=== PATIENT | male | born 1990 | race Caucasian/White ===

== ENCOUNTER 2016-11-20 16:12 | Emergency (ER) | payer BC ==
--- NOTE | 2016-11-20 16:39 | EDM.PDOC ---
ED HPI GENERAL MEDICAL PROBLEM - General Chief Complaint: Chest Pain Stated Complaint: CHEST PAINS Time Seen by Provider: 11/20/16 16:30 - History of Present Illness INITIAL COMMENTS - FREE TEXT/NARRATIVE: HISTORY AND PHYSICAL: History of present illness: Patient is a 25-year-old white male who presents with chief complaint of chest pain this is atypical in the center of his chest with no clear associated shortness of breath palpitations diaphoresis nausea vomiting or other complaints he does have a history of esophagitis and does take Prilosec there is no clear palliating or grating factors and Review of systems: As per history of present illness and below otherwise all systems reviewed and negative. Past medical history: As per history of present illness and as reviewed below otherwise noncontributory. Surgical history: As per history of present illness and as reviewed below otherwise noncontributory. Social history: No reported history of drug or alcohol abuse. Family history: As per history of present illness and as reviewed below otherwise noncontributory. Physical exam: HEENT: Atraumatic, normocephalic, pupils reactive, negative for conjunctival pallor or scleral icterus, mucous membranes moist, throat clear, neck supple, nontender, trachea midline. Lungs: Clear to auscultation, breath sounds equal bilaterally, chest nontender. Heart: S1S2, regular, negative for clicks, rubs, or JVD. Abdomen: Soft, nondistended, nontender. Negative for masses or hepatosplenomegaly. Negative for costovertebral tenderness. Pelvis: Stable nontender. Genitourinary: Deferred. Rectal: Deferred. Extremities: Atraumatic, negative for cords or calf pain. Neurovascular unremarkable. Neuro: Awake, alert, oriented. Cranial nerves II through XII unremarkable. Cerebellum unremarkable. Motor and sensory unremarkable throughout. Exam nonfocal. Diagnostics: EKG chest x-ray Therapeutics: None Impression: #1 atypical chest pain #2 history of gastroesophageal reflux disease Definitive disposition and diagnosis as appropriate pending reevaluation and review of above. ED ROS GENERAL - Review of Systems Review Of Systems: ROS reveals no pertinent complaints other than HPI. ED EXAM, GENERAL - Physical Exam Exam: See Below (See dictation) Course - Orders/Labs/Meds Orders: Active Orders 24 hr Category Date Time Status Chest 2V [CR] Stat Exams 11/20/16 16:33 Ordered Departure - Departure Time of Disposition: 16:37 Disposition: Home, Self-Care 01 Condition: good Clinical Impression: Atypical chest pain Forms: ED Department Discharge Additional Instructions: The following information is given to patients seen in the emergency department who are being discharged to home. This information is to outline your options for follow-up care. We provide all patients seen in our emergency department with a follow-up referral. The need for follow-up, as well as the timing and circumstances, are variable depending upon the specifics of your emergency department visit. If you don't have a primary care physician on staff, we will provide you with a referral. We always advise you to contact your personal physician following an emergency department visit to inform them of the circumstance of the visit and for follow-up with them and/or the need for any referrals to a consulting specialist. The emergency department will also refer you to a specialist when appropriate. This referral assures that you have the opportunity for followup care with a specialist. All of these measure are taken in an effort to provide you with optimal care, which includes your followup. Under all circumstances we always encourage you to contact your private physician who remains a resource for coordinating your care. When calling for followup care, please make the office aware that this follow-up is from your recent emergency room visit. If for any reason you are refused follow-up, please contact the [facility] emergency department at and asked to speak to the emergency department charge nurse. [facility] [address] [place] [id number] Followup primary medical doctor/clinic above is discussed Motrin Tylenol as directed continue Prilosec return as needed as discussed - My Orders Last 24 Hours: My Active Orders 11/20/16 16:33 Chest 2V [CR] Stat - Assessment/Plan Last 24 Hours: My Active Orders 11/20/16 16:33 Chest 2V [CR] Stat
[2016-11-20 17:35] VITALS: BP 132/70
--- NOTE | 2016-11-21 19:06 | CR ---
EXAM DATE: 11/20/16 PATIENT'S AGE: 25 Patient: JENNIFFER KEY Facility: [place], [place] Site . Site : 1990 Study: XRay Chest [id number]/26/2017 5:16:56 PM Ordering Physician: Levar Tripathi Final Report: INDICATION: Pain/shortness of breath. Cough. Technique: PA and lateral chest x-ray. Findings: Heart size normal. Lungs clear without infiltrate or consolidation. Chest otherwise negative without acute disease. Dictated by Curtis Moser MD @ Nov 20 2016 5:52PM (Electronic Signature) Report Signed by Proxy and Original Signed Document filed in the Medical Record. MTDD
== END 2016-11-20 17:33 | disposition home or self-care (01) ==
LOC: MW.ED 16:12
DX: R07.89 Other chest pain (principal)
CPT/HCPCS: 71020; 71020-26; 93005; 99283; 99285-25

== ENCOUNTER 2017-02-21 18:06 | Emergency (ER) | payer BC ==
--- NOTE | 2017-02-21 18:30 | EDM.PDOC ---
ED HPI GENERAL MEDICAL PROBLEM - General Chief Complaint: Laceration Stated Complaint: PT HAS KNIFE IN RT FOOT Time Seen by Provider: 02/21/17 18:26 - History of Present Illness INITIAL COMMENTS - FREE TEXT/NARRATIVE: HISTORY AND PHYSICAL: History of present illness: Patient 26-year-old male presents with a concern of acute injury right foot in the form of penetrating trauma he stepped on a knifeblade that went through his sandal into the plantar surface and protrudes out the dorsal aspect of this distal forefoot he denies any other trauma or concern tetanus status to be determined Review of systems: As per history of present illness and below otherwise all systems reviewed and negative. Past medical history: As per history of present illness and as reviewed below otherwise noncontributory. Surgical history: As per history of present illness and as reviewed below otherwise noncontributory. Social history: No reported history of drug or alcohol abuse. Family history: As per history of present illness and as reviewed below otherwise noncontributory. Physical exam: HEENT: Atraumatic, normocephalic, pupils reactive, negative for conjunctival pallor or scleral icterus, mucous membranes moist, throat clear, neck supple, nontender, trachea midline. Lungs: Clear to auscultation, breath sounds equal bilaterally, chest nontender. Heart: S1S2, regular, negative for clicks, rubs, or JVD. Abdomen: Soft, nondistended, nontender. Negative for masses or hepatosplenomegaly. Negative for costovertebral tenderness. Pelvis: Stable nontender. Genitourinary: Deferred. Rectal: Deferred. Extremities: Patient has a foreign body right foot the form of approximately 7 inch blade and is approximately three quarters of an inch in diameter proximally and tapers to a point distally that is penetrated from the plantar side of his foot through his sandal and exited dorsally CMS neurovascular is unremarkable is good distal pulses Neuro: Awake, alert, oriented. Cranial nerves II through XII unremarkable. Cerebellum unremarkable. Motor and sensory unremarkable throughout. Exam nonfocal. Diagnostics: X-ray right foot Therapeutics: Patient had this foreign body removed by myself in the emergency department this was done without complication status post he has good pulses neurovascular exam CMS unremarkable Ancef 1 g was given IV Impression: Impression is penetrating trauma right foot (knife status post removal) Definitive disposition and diagnosis as appropriate pending reevaluation and review of above. right foot Pain Score (Numeric/FACES): 4 - Related Data Allergies Allergy/AdvReac Type Severity Reaction Status Date / Time No Known Allergies Allergy Verified 02/21/17 18:22 Home Meds: Home Meds Omeprazole Magnesium [Prilosec] 2.5 mg PO DAILY 11/20/16 [History] lamoTRIgine [Lamotrigine] 100 mg PO BID 11/20/16 [History] Past Medical History - Past Health History Medical/Surgical History: Denies Medical/Surgical History Neurological History: Reports: Seizure Other Neuro History: Epilepsy - Infectious Disease History Infectious Disease History: Reports: Chicken Pox Social & Family History - Family History Family Medical History: Noncontributory - Tobacco Use Smoking Status *Q: Never Smoker Second Hand Smoke Exposure: No - Caffeine Use Caffeine Use: Reports: Soda Caffeine Use Comment: 2drinks/day - Alcohol Use Days Per Week of Alcohol Use: 1 Number of Drinks Per Day: 3 Total Drinks Per Week: 3 - Recreational Drug Use Recreational Drug Use: No ED ROS GENERAL - Review of Systems Review Of Systems: ROS reveals no pertinent complaints other than HPI. ED EXAM, SKIN/RASH Exam: See Below (See dictation) Course - Vital Signs Last Recorded V/S: Last Vital Signs Temp 36.1 C 02/21/17 18:22 Pulse 125 H 02/21/17 18:22 Resp 16 02/21/17 18:22 BP 158/107 H 02/21/17 18:22 Pulse Ox 98 02/21/17 18:22 - Orders/Labs/Meds Orders: Active Orders 24 hr Category Date Time Status Foot 2V Rt [CR] Stat Exams 02/21/17 18:19 Taken Foot 2V Rt [CR] Stat Exams 02/21/17 18:43 Ordered Sodium Chloride 0.9% [Normal Saline] 1,000 ml Med 02/21/17 18:40 Active IV .Bolus Medication Orders Sodium Chloride (Normal Saline) 1,000 mls @ 999 mls/hr IV .Bolus ONE Stop: 02/21/17 19:40 Last Admin: 02/21/17 18:41 Dose: 999 mls/hr Meds: Medications Generic Name Dose Route Start Last Admin Trade Name Freq PRN Reason Stop Dose Admin Sodium Chloride 1,000 mls @ 999 mls/hr 02/21/17 18:40 02/21/17 18:41 Normal Saline IV 02/21/17 19:40 999 mls/hr .Bolus ONE Administration Discontinued Medications Generic Name Dose Route Start Last Admin Trade Name Torres PRN Reason Stop Dose Admin Cefazolin Sodium/Dextrose 1 gm 50 mls @ 100 mls/hr 02/21/17 18:31 02/21/17 18 :39 / Premix IV 02/21/17 19:00 100 mls/hr ONETIME ONE Administration Departure - Departure Time of Disposition: 19:06 Disposition: Home, Self-Care 01 Condition: Good Clinical Impression: Foot trauma - Discharge Information Forms: ED Department Discharge Additional Instructions: The following information is given to patients seen in the emergency department who are being discharged to home. This information is to outline your options for follow-up care. We provide all patients seen in our emergency department with a follow-up referral. The need for follow-up, as well as the timing and circumstances, are variable depending upon the specifics of your emergency department visit. If you don't have a primary care physician on staff, we will provide you with a referral. We always advise you to contact your personal physician following an emergency department visit to inform them of the circumstance of the visit and for follow-up with them and/or the need for any referrals to a consulting specialist. The emergency department will also refer you to a specialist when appropriate. This referral assures that you have the opportunity for followup care with a specialist. All of these measure are taken in an effort to provide you with optimal care, which includes your followup. Under all circumstances we always encourage you to contact your private physician who remains a resource for coordinating your care. When calling for followup care, please make the office aware that this follow-up is from your recent emergency room visit. If for any reason you are refused follow-up, please contact the [facility] emergency department at and asked to speak to the emergency department charge nurse. [facility] Specialty Care - General Surgery Professional Building [address] [place] [address], [address] [place] [address] Keflex as prescribed follow-up Gen. surgery above call to schedule routine appointment return as needed as discussed - My Orders Last 24 Hours: My Active Orders 02/21/17 18:19 Foot 2V Rt [CR] Stat 02/21/17 18:40 Sodium Chloride 0.9% [Normal Saline] 1,000 ml IV .Bolus 02/21/17 18:43 Foot 2V Rt [CR] Stat - Assessment/Plan Last 24 Hours: My Active Orders 02/21/17 18:19 Foot 2V Rt [CR] Stat 02/21/17 18:40 Sodium Chloride 0.9% [Normal Saline] 1,000 ml IV .Bolus 02/21/17 18:43 Foot 2V Rt [CR] Stat
[2017-02-21] MEDS ORDERED: ceFAZolin 1 GM in Premix Bag 1 BAG IV ONE (18:31)
[2017-02-21] MEDS ORDERED: Sodium Chloride 0.9% 1,000 ML IV ONE (18:40)
[2017-02-22 03:36] VITALS: BP 140/95
--- NOTE | 2017-02-22 10:14 | CR ---
EXAM DATE: 02/21/17 PATIENT'S AGE: 26 Patient: JENNIFFER KEY Facility: [place], [place] Site . Site : 1990 Study: XRay Extremity Right FOOT [id number]/27/2017 6:37:44 PM Ordering Physician: Doctor Cowan Final Report: Indication: Knife in foot. Technique: Right foot two views. Comparison: None. Findings: Overlying shoe artifact. Metallic foreign body consistent with a knife is projects between the 3rd and 4th metatarsals. No evidence of acute fracture. Impression: Metallic body consistent with a knife projecting between the 3rd and 4th metatarsals. Dictated by Rohan Tam MD @ 02/21/2017 6:57:39 PM Dictated by: Rohan Tam MD @ 02/21/2017 18:58:02 (Electronic Signature) Report Signed by Proxy. MTDMimi
--- NOTE | 2017-02-22 10:15 | CR ---
EXAM DATE: 02/21/17 PATIENT'S AGE: 26 Patient: JENNIFFER KEY Facility: [place], [place] Site . Site : 1990 Study: XRay Extremity Right FOOT [id number]/27/2017 7:10:14 PM Ordering Physician: Levar Tripathi Final Report: Indication: Status post knife removal. Technique: Right foot two views. Comparison: Right foot 02/21/2017 6:29 p.m.. Findings: Previously noted knife projecting between the 3rd and 4th metatarsals has been removed. No acute fracture or additional osseous abnormality. Impression: Interval removal of knife from the right foot. No acute fracture. Dictated by Rohan Tam MD @ 02/21/2017 7:34:53 PM Dictated by: Rohan Tam MD @ 02/21/2017 19:35:09 (Electronic Signature) Report Signed by Proxy. ASCENCION
== END 2017-02-21 19:55 | disposition home or self-care (01) ==
LOC: MW.ED 18:06
DX: S91.321A Laceration with foreign body, right foot, initial encounter (principal); W26.0XXA Contact with knife, initial encounter; Z79.899 Other long term (current) drug therapy
CPT/HCPCS: 73620; 96365; 99283; J0690; J7040; 99284

== ENCOUNTER 2018-09-24 06:14 | Emergency (ER) | payer BC ==
--- NOTE | 2018-09-24 06:25 | EDM.PDOC ---
ED HPI GENERAL MEDICAL PROBLEM - General Chief Complaint: Respiratory Problem Stated Complaint: SHORTNESS OF BREATH Time Seen by Provider: 09/24/18 06:25 - History of Present Illness INITIAL COMMENTS - FREE TEXT/NARRATIVE: HISTORY AND PHYSICAL: History of present illness: Patient is 27-year-old white male presents with concern of dyspnea he states he felt slightly short of breath and somewhat intermittent over last 2 days he denies chest pain nausea vomiting other complaints denies history of asthma who does have a history of anxiety. He denies tobacco or drugs Review of systems: As per history of present illness and below otherwise all systems reviewed and negative. Past medical history: As per history of present illness and as reviewed below otherwise noncontributory. Surgical history: As per history of present illness and as reviewed below otherwise noncontributory. Social history: No reported history of drug or alcohol abuse. Family history: As per history of present illness and as reviewed below otherwise noncontributory. Physical exam: HEENT: Atraumatic, normocephalic, pupils reactive, negative for conjunctival pallor or scleral icterus, mucous membranes moist, throat clear, neck supple, nontender, trachea midline. Lungs: Clear to auscultation, breath sounds equal bilaterally, chest nontender. Heart: S1S2, regular, negative for clicks, rubs, or JVD. Abdomen: Soft, nondistended, nontender. Negative for masses or hepatosplenomegaly. Negative for costovertebral tenderness. Pelvis: Stable nontender. Genitourinary: Deferred. Rectal: Deferred. Extremities: Atraumatic, negative for cords or calf pain. Neurovascular unremarkable. Neuro: Awake, alert, oriented. Cranial nerves II through XII unremarkable. Cerebellum unremarkable. Motor and sensory unremarkable throughout. Exam nonfocal. Diagnostics: Chest x-ray influenza screen Therapeutics: None Impression: #1 dyspnea #2 history of anxiety Definitive disposition and diagnosis as appropriate pending reevaluation and review of above. - Related Data Allergies Allergy/AdvReac Type Severity Reaction Status Date / Time No Known Allergies Allergy Verified 02/21/17 18:22 Home Meds: Home Meds Omeprazole Magnesium [Prilosec] 2.5 mg PO DAILY 11/20/16 [History] lamoTRIgine [Lamotrigine] 100 mg PO BID 11/20/16 [History] Past Medical History - Past Health History Medical/Surgical History: Denies Medical/Surgical History HEENT History: Reports: None Cardiovascular History: Reports: None Respiratory History: Reports: None Gastrointestinal History: Reports: None Genitourinary History: Reports: None Musculoskeletal History: Reports: None Neurological History: Reports: Seizure Other Neuro History: Epilepsy Psychiatric History: Reports: None Endocrine/Metabolic History: Reports: None Hematologic History: Reports: None Immunologic History: Reports: None Oncologic (Cancer) History: Reports: None Dermatologic History: Reports: None - Infectious Disease History Infectious Disease History: Reports: Chicken Pox Social & Family History - Family History Family Medical History: Noncontributory - Caffeine Use Caffeine Use: Reports: Soda Caffeine Use Comment: 2drinks/day ED ROS GENERAL - Review of Systems Review Of Systems: ROS reveals no pertinent complaints other than HPI. ED EXAM, GENERAL - Physical Exam Exam: See Below (See dictation) Departure - Departure Time of Disposition: 06:24 Disposition: Home, Self-Care 01 Condition: Good Clinical Impression: Dyspnea, History of anxiety - Discharge Information Referrals: PCP,None [Primary Care Provider] - Additional Instructions: The following information is given to patients seen in the emergency department who are being discharged to home. This information is to outline your options for follow-up care. We provide all patients seen in our emergency department with a follow-up referral. The need for follow-up, as well as the timing and circumstances, are variable depending upon the specifics of your emergency department visit. If you don't have a primary care physician on staff, we will provide you with a referral. We always advise you to contact your personal physician following an emergency department visit to inform them of the circumstance of the visit and for follow-up with them and/or the need for any referrals to a consulting specialist. The emergency department will also refer you to a specialist when appropriate. This referral assures that you have the opportunity for followup care with a specialist. All of these measure are taken in an effort to provide you with optimal care, which includes your followup. Under all circumstances we always encourage you to contact your private physician who remains a resource for coordinating your care. When calling for followup care, please make the office aware that this follow-up is from your recent emergency room visit. If for any reason you are refused follow-up, please contact the [facility] emergency department at and asked to speak to the emergency department charge nurse. Follow-up primary medical doctor as needed as discussed and return as needed if
[2018-09-24 06:47] VITALS: BP 132/91
--- NOTE | 2018-09-24 07:10 | CR ---
INDICATION: Shortness of breath TECHNIQUE: Chest 1 views COMPARISON: November 20, 2016 FINDINGS: Cardiovascular and mediastinum: Heart size and vasculature are normal in caliber and appearance. Lungs and pleural spaces: Lungs are clear. No sign of infiltrate or mass. No sign of pleural effusion. No pneumothorax. Bones and soft tissues: No significant findings. IMPRESSION: No acute findings and no significant changes from the prior exam. Dictated by Jason Evans MD @ Sep 24 2018 7:07AM Signed by Dr. Jason Evans @ Sep 24 2018 7:08AM
[2018-09-24] MEDS ORDERED: Albuterol/Ipratropium 3.0-0.5 MG/3 ML Neb Soln NEB ONE (07:11)
== END 2018-09-24 07:20 | disposition home or self-care (01) ==
LOC: MW.ED 06:14
DX: R06.00 Dyspnea, unspecified (principal); F41.9 Anxiety disorder, unspecified; Z79.899 Other long term (current) drug therapy
CPT/HCPCS: 71045; 71045-26; 87804; 94640; 99283; 99284-25; J7620-GY